=== PATIENT | female | born 1975 | race Two or more races ===

== ENCOUNTER → 2024-10-06 | Outpatient (CLI) | payer MEDICAID, SELFPAY ==
[2024-10-06] VITALS (7 sets, daily range): BP systolic 119–145; BP diastolic 72–90; PULSE 69–82; RESP 13–24; TEMP 37.1; O2SAT 95–100
[2024-10-06 12:50] LABS: HCG Qualitative,Urine Negative
--- NOTE | 2024-10-06 13:00 | XR_ITS ---
Examination: CTA abdomen, with intravenous contrast. CTA pelvis, with intravenous contrast. 2-D sagittal and coronal reconstructions. 3-D reconstructions. Date and time of exam: October 06, 2024 1420 hours INDICATIONS: Cirrhosis, portal hypertension CTDI vol (mgy) 59.1 DLP (MGycm) 3051 Technique: Multiple CTA images, 2.0 mm slice thickness, obtained, abdomen, pelvis, with the high-resolution 64 slice scanner. 60 cc Isovue-300 is administered intravenously. Sagittal and coronal 2-D reconstructions are obtained. 3-D reconstructions, angiographic images are obtained. 3-D postprocessing, including vascular maximum intensity projections. Low dose protocols were performed. One or more of the following dose reduction techniques were used; automated exposure control, adjustment of the mA and/or KV according to patient size, use of iterative reconstruction technique. Findings: Liver mildly irregular in contour Calcification involving the wall the gallbladder Splenomegaly AP dimension 16 cm No pancreatic mass Aorta normal size No bowel obstruction No hydronephrosis Minute fat-containing umbilical hernia Normal appendix No diverticulitis Uterine fundal mass 25 mm Urinary bladder intact Advanced degenerative disc disease L4-L5, L5-S1 IMPRESSION: Cirrhosis Significant splenomegaly Calcification involving the wall the gallbladder, consider hepatobiliary sonography follow-up Normal appendix No bowel obstruction Recommend repeat pelvic sonography to assess uterine fundal mass
[2024-10-06] MEDS: HYDROCORTISONE SOD SUCC INJ 100 MG VIAL IV (14:01)
[2024-10-06] MEDS: DiphenhydrAMINE 25 MG CAPSULE 50 MG PO (14:30)
--- NOTE | 2024-10-06 14:30 | PC.NURSE ---
UPON COMPLETION OF CT NOTED PATIENT TO HAVE A HIVE ABOVE HER LIP. PATIENTS CHEEKS WERE RED AND LEFT ARM AND FACE FELT ITCHY. DOCTOR YANA NOTIFIED. BENADRYL PO ORDERED AND GIVEN. PATIENTS SKIN ASSESSED NO OTHER HIVES. WILL CONTINUE TO MONITOR.
--- NOTE | 2024-10-06 15:45 | PC.NURSE ---
HIVE ON PATIENTS FACE NOW GONE AND REDNESS NO LONGER NOTED. PATIENT NO LONGER FEELS ITCHY. PATIENT HAS A RIDE HOME AND STATES SHE FEELS READY TO GO HOME.
== END | disposition home or self-care (01) ==
PROVIDERS: PCP Nurse Practitioner Primary Care; Referring Provider Internal Medicine Hepatology; Visit Provider Internal Medicine Hepatology
DX: K74.60 Unspecified cirrhosis of liver (principal); R16.1 Splenomegaly, not elsewhere classified; K82.8 Other specified diseases of gallbladder; Z32.00 Encounter for pregnancy test, result unknown
CPT/HCPCS: 74174; 81025; A4649; J1720; Q9967; A9270

== ENCOUNTER 2024-10-16 10:28 | Outpatient (RCR) | payer MEDICAID, SELFPAY ==
--- NOTE | 2024-10-18 05:48 | CTCFLWUP_ITS ---
Patient: MARIYA RANDALL : 1975 Page 4 of 4 FOLLOW UP NOTE DATE OF SERVICE: 10/16/2024 NAME: MARIYA RANDALL ACCOUNT: [id number] : 1975 AGE: 49 INTERVAL HISTORY: Patient is doing well and have no new complaints. Denies any bleeding or bruising. Patient follows with filter worker and was told that she is not a candidate for liver transplant. She has varices as well as cirrhosis but was told that her cirrhosis is stable. Patient also has splenomegaly. ONCOLOGY HISTORY: DIAGNOSIS: Thrombocytopenia, unspecified [ICD10] D69.6 HISTORY OF PRESENT ILLNESS: Mariya Randall is a 49-year-old ENG speaking female without any significant past medical history has been trying to get since 2018. She apparently had in vitro fertilization in [place]. Currently she is carrying twin babies. She is referred to hematology clinic for thrombocytopenia 06/19/2019: Platelet count 153,000, WBC 5.2, ANC 3.0, hemoglobin 11.6, MCV 91 04/03/2022: Platelet count 85,000, WBC 5.0, hemoglobin 11.7, MCV 102, creatinine 0.5, T bili 0.5, AST 37, ALT 30 LDH 179 04/09/2022: Platelet count 78,000, WBC 3.8, ANC 2.6, hemoglobin 11.1, MCV 106, creatinine 0.5, T bili 0.6, AST 45, ALT 33 04/26/2022: Platelet count 56,000 04/27/2022: Platelet count 56,000. Platelet aggregation noted in the sample. 05/04/2022: Platelet count 62,000. Ms. Randall received first dose of IVIG 85 g. (1 g/kg) 05/05/2022 platelet count 60,000. Ms. Randall received second dose of IVIG 85 g (1 g/kg) 05/06/2022: Platelet count 56,000, WBC 2.6, ANC 1.8, hemoglobin 10.4, MCV 107, creatinine 0.9, AST 53, ALT 33, T bili 0.9, alk phos 203 05/14/2022: Ms. Randall had at [facility] in [place]. She was found to have preeclampsia. She was also found to have cirrhosis of the liver, ascites as well as anasarca. 05/16/2022: CT scan of the abdomen and pelvis with contrast?spleen is reportedly unremarkable. 06/11/2022: Platelet count 89,000, WBC 2.7, ANC 1.7, hemoglobin 12.5. 07/13/2022: WBC 2.6, ANC 1.6, hemoglobin 12.6, MCV 100, platelets 89,000, creatinine 0.58 AST 28, ALT 18, alkaline phosphatase 58, T bili 0.7, hepatitis C not detected, HSV IgG type 32.9, antimitochondrial antibodies negative 07/23/2022: Abdominal ultrasound 09/21/2022: Platelets 88,000, hemoglobin 13.5, MCV 96, WBC 3.6, ANC 2.1. T. bili 0.7, AST 26, ALT 19. Hepatitis B surface antibody 743.2. Hepatitis S antigen negative, hepatitis B core antibody negative. Hepatitis A antibody positive 10/08/2022: EGD and colonoscopy at [facility] 11/04/2023: Platelet count 81,000, WBC 3.3, ANC 2.0, hemoglobin 14.9, MCV 96. 02/21/2024: Platelet count 88,000, WBC 3.9, ANC 2.8, hemoglobin 14.1, MCV 97, creatinine 0.61, AST 20, ALT 18, hepatitis panel negative. 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 Farxiga - 10 mg 1 tab Daily 2. Lantus Solostar - 100 unit/mL (3 mL) As directed 3. naproxen - 375 mg 1 tab Twice a Day Medications Last Reconciled by Roxy Sapp MA on 05/16/2024 (Reconcile on Approval: ?) ALLERGIES: ibuprofen; Iodine and Iodide Containing Products REVIEW OF SYSTEMS: A complete 14-point review of systems was performed and is negative except as noted in interval history. PHYSICAL EXAMINATION: VITAL SIGNS: PAIN: 5 - Between moderate and severe pain ECOG Performance Status: 0 - Asymptomatic and fully active GENERAL APPEARANCE: Appears well, in no apparent distress, appropriately interactive. HEENT: Normocephalic, no temporal wasting, normal conjunctiva, no scleral icterus, normal hearing, lips without lesions, neck normal range of motion. CARDIOVASCULAR: Not assessed. PULMONARY: Normal respiratory effort, no respiratory distress or use of accessory muscles, speaking in full sentences, no tachypnea. EXTREMITIES: No pedal edema or cyanosis. SKIN: Normal skin appearance. NEUROLOGIC: Alert and oriented x4. PSHYCHIATRIC: Appropriate affect, mood normal, behavior normal, intact thought and speech. LABORATORY DATA: I have personally reviewed and interpreted each of the patient?s relevant lab tests, abnormal findings are below: Date 05/05/22 ??WHITE?BLOOD?COUNT?(Thou/mm3) 2.5?L ??RED?BLOOD?COUNT?(Miln/mm3) 3.23?L ??HEMOGLOBIN?(gm/dl) 11.3?L ??HEMATOCRIT?(%) 33.8?L ??PLATELET?COUNT?(Thou/mm3) 60?L ??NEUTROPHILS?%,?AUTO?(%) 65 ??LYMPH?%,?AUTO?(%) 22 ??NEUTROPHILS,?AUTO?(Thou/mm3) 1.7?L ASSESSMENT/PLAN: Thrombocytopenia from underlying cirrhosis and splenomegaly She was seen at liver transplant department at [facility] recently and felt to be not a candidate at this time for liver transplant. Hepatitis panel negative.. Thrombocytopenia most likely secondary to portal hypertension and splenomegaly. EGD showed small esophageal varices and portal hypertensive gastropathy Cirrhosis of the liver thought to be secondary to GRAMAJO. She is being followed by hepatology department at [facility]. Hepatitis B surface antibody +743.2. Hepatitis S antigen negative. Hepatitis A antibody positive Ultrasound of the abdomen showed slight enlargement of the spleen measuring 15.4 cm Hepatitis C infection negative, hepatitis B core antibody negative, hepatitis A antibody positive. Antimitochondrial antibodies negative S/p on 05/14/2022 at [facility] in [place]. She had preeclampsia. Following the surgery she had ascites as well as anasarca. She was found to have cirrhosis of the liver.. Twin from IVF. Discussed with Ms. Randall that her platelets are 76. Patient will needed transfusion of 2 units of platelets to undergo any procedure. Also discussed with her to discuss with her hematology if she is a candidate for transplant or spleen ectomy. There is a literature where splenomegaly can worsen cirrhosis and splenectomy can help with thrombocytopenia as well as some cirrhotic liver improvement. Patient at this time is stable ORDERS: Standing order for CBC placed Ultrasound of the gallbladder to evaluate for cholelithiasis or tumor Ultrasound of the uterus to evaluate for fibroid or mass PT/INR CBC CMP and alpha-fetoprotein Need MRI liver every 6 months to evaluate for HCC from underlying cirrhosis. Patient follows with hepatology for her liver monitoring RETURN TO CLINIC: I will see her back in the clinic in 3 months. BILLING AND COMPLIANCE: I reviewed external records from providers outside my specialty as summarized above. I spent a total of 50 minutes on this patient?s care on the day of their visit excluding time spent related to any billed procedures. This time includes time spent with the patient as well as time spent documenting in the medical record, reviewing patients records and tests, obtaining history, placing orders, communicating with other healthcare professionals, counseling the patient, family or caregiver, and/or care coordination for the diagnoses above. Electronically Signed by: {Object.Sanct_ID*[email or web address]@M}, {Object.Sanct_ID*[email or web address]@U} D: {Object.Sanct_Date} T: {Object.Sanct_Time} CC: PCP: Yonas Esteban Referring: Yonas Esteban This document was completed utilizing speech recognition software. Grammatical errors, random word insertions, pronoun errors, and incomplete sentences are an occasional consequence of this system due to software limitations, ambient noise, and hardware issues. Any formal questions or concerns about the content, text or information contained within the body of this dictation should be directly addressed to the provider for clarification.
== END 2024-11-13 23:59 | disposition home or self-care (01) ==
LOC: SCTC 10:28
PROVIDERS: PCP Nurse Practitioner Family; Referring Provider Nurse Practitioner Family; Visit Provider Internal Medicine Hematology & Oncology
DX: D69.6 Thrombocytopenia, unspecified (principal); K74.60 Unspecified cirrhosis of liver; R16.1 Splenomegaly, not elsewhere classified; B15.9 Hepatitis A without hepatic coma; I85.00 Esophageal varices without bleeding; K76.6 Portal hypertension; K31.89 Other diseases of stomach and duodenum
CPT/HCPCS: 99212; G0463

== ENCOUNTER → 2024-11-03 | Outpatient (CLI) | payer MEDICAID, SELFPAY ==
--- NOTE | 2024-11-03 09:15 | XR_ITS ---
Examination: Abdomen sonogram, Limited Date and time of exam: November 03, 2024 0820 hours INDICATIONS: Right lower abdominal pain left flank pain beginning 2 weeks ago Technique: Real-time ward scale transabdominal sonographic images of the upper abdomen obtained. Findings: Gallstones, gallbladder sludge Gallbladder wall 0.43 cm no edema Common bile duct 0.6 cm no stones Pancreatic head 3.3 cm Liver 13.8 cm fatty infiltration no focal liver lesions Normal hepatopedal portal venous flow Patent IVC IMPRESSION: Cholelithiasis Borderline thickening gallbladder wall 0.43 cm, consider HIDA scan follow-up as clinically warranted Common bile duct 0.6 cm no stones Fatty liver
--- NOTE | 2024-11-03 09:45 | XR_ITS ---
Examination: Pelvic ultrasound, transabdominal, complete Technique: Transabdominal ultrasound of the pelvis performed using grayscale imaging Date and time of exam: November 03, 2024 0840 hours INDICATIONS: Right lower abdominal pain flank pain beginning 2 weeks ago FINDINGS: Uterus 9.1 cm endometrial stripe 1.2 cm Uterine area, fundal of probable fibroid degeneration 2.8 x 2.9 x 3.1 cm Right ovary 2.7 cm arterial flow Left ovary obscured by bowel gas IMPRESSION: Uterine fundal area of fibroid degeneration 2.8 x 2.9 x 3.1 cm, consider 6 month transvaginal pelvic sonography follow-up The endometrial stripe is abnormally thickened if the patient is postmenopausal, clinical correlation advised Differential for thickened endometrial stripe in a postmenopausal individual would include early malignant neoplasm of the endometrium, and follow-up MRI pelvis pre and postcontrast could be obtained as clinically warranted
== END | disposition home or self-care (01) ==
LOC: CDIM 08:20
PROVIDERS: Referring Provider Internal Medicine Hematology & Oncology; Visit Provider Internal Medicine Hematology & Oncology
DX: K80.20 Calculus of gallbladder without cholecystitis without obstruction (principal); K82.8 Other specified diseases of gallbladder; K76.0 Fatty (change of) liver, not elsewhere classified; D25.9 Leiomyoma of uterus, unspecified; N95.9 Unspecified menopausal and perimenopausal disorder; R93.89 Abnormal findings on diagnostic imaging of other specified body structures; O99.119 Other diseases of the blood and blood-forming organs and certain disorders involving the immune mechanism complicating pregnancy, unspecified trimester
CPT/HCPCS: 76705; 76856

== ENCOUNTER → 2025-01-05 | Outpatient (CLI) | payer MEDICAID, SELFPAY ==
--- NOTE | 2025-01-05 08:15 | XR_ITS ---
Examination: Screening digital mammography, bilateral Computer aided detection 3-D breast Tomosynthesis, bilateral Date and time of exam: January 05, 2025 0811 hours Compared to mammograms dated to January 20, 2019 Indication: Screening Technique: Nonmagnified MLO, CC views of the breasts to been obtained, reconstructed from 3-D Tomosynthesis images. R2 computer aided detection program utilized for evaluation of suspicious masses and/or abnormal calcifications. 3-D Tomosynthesis images obtained. Findings: Scattered areas of fibroglandular density. Benign calcifications. No interval suspicious masses Impression: BI-RADS category II: Benign Findings. Recommend 1 year follow-up mammogram.
== END | disposition home or self-care (01) ==
LOC: CDIM 07:38
PROVIDERS: Referring Provider Nurse Practitioner Primary Care; Visit Provider Nurse Practitioner Primary Care
DX: Z12.31 Encounter for screening mammogram for malignant neoplasm of breast (principal); R92.323 Mammographic fibroglandular density, bilateral breasts; R92.1 Mammographic calcification found on diagnostic imaging of breast
CPT/HCPCS: 77063; 77067

== ENCOUNTER 2025-01-16 15:21 | Outpatient (RCR) | payer MEDICAID, SELFPAY ==
--- NOTE | 2025-01-18 09:59 | CTCFLWUP_ITS ---
Patient: MARIYA RANDALL : 1975 Page 2 of 2 FOLLOW UP NOTE DATE OF SERVICE: 01/16/2025 NAME: MARIYA RANDALL ACCOUNT: [id number] : 1975 AGE: 49 INTERVAL HISTORY: Patient is doing well and have no new complaints. Denies any bleeding or bruising. Patient follows with planer offbearer and was told that she is not a candidate for liver transplant. She has varices as well as cirrhosis but was told that her cirrhosis is stable. Patient also has splenomegaly. ONCOLOGY HISTORY: DIAGNOSIS: Thrombocytopenia, unspecified [ICD10] D69.6 TREATMENT HISTORY: Care?Plan Start?Date Cycle Day Intent HISTORY OF PRESENT ILLNESS: Mariya Randall is a 49-year-old ENG speaking female without any significant past medical history has been trying to get since 2018. She apparently had in vitro fertilization in [place]. Currently she is carrying twin babies. She is referred to hematology clinic for thrombocytopenia 06/19/2019: Platelet count 153,000, WBC 5.2, ANC 3.0, hemoglobin 11.6, MCV 91 04/03/2022: Platelet count 85,000, WBC 5.0, hemoglobin 11.7, MCV 102, creatinine 0.5, T bili 0.5, AST 37, ALT 30 LDH 179 04/09/2022: Platelet count 78,000, WBC 3.8, ANC 2.6, hemoglobin 11.1, MCV 106, creatinine 0.5, T bili 0.6, AST 45, ALT 33 04/26/2022: Platelet count 56,000 04/27/2022: Platelet count 56,000. Platelet aggregation noted in the sample. 05/04/2022: Platelet count 62,000. Ms. Randall received first dose of IVIG 85 g. (1 g/kg) 05/05/2022 platelet count 60,000. Ms. Randall received second dose of IVIG 85 g (1 g/kg) 05/06/2022: Platelet count 56,000, WBC 2.6, ANC 1.8, hemoglobin 10.4, MCV 107, creatinine 0.9, AST 53, ALT 33, T bili 0.9, alk phos 203 05/14/2022: Ms. Randall had at [facility] in [place]. She was found to have preeclampsia. She was also found to have cirrhosis of the liver, ascites as well as anasarca. 05/16/2022: CT scan of the abdomen and pelvis with contrast?spleen is reportedly unremarkable. 06/11/2022: Platelet count 89,000, WBC 2.7, ANC 1.7, hemoglobin 12.5. 07/13/2022: WBC 2.6, ANC 1.6, hemoglobin 12.6, MCV 100, platelets 89,000, creatinine 0.58 AST 28, ALT 18, alkaline phosphatase 58, T bili 0.7, hepatitis C not detected, HSV IgG type 32.9, antimitochondrial antibodies negative 07/23/2022: Abdominal ultrasound 09/21/2022: Platelets 88,000, hemoglobin 13.5, MCV 96, WBC 3.6, ANC 2.1. T. bili 0.7, AST 26, ALT 19. Hepatitis B surface antibody 743.2. Hepatitis S antigen negative, hepatitis B core antibody negative. Hepatitis A antibody positive 10/08/2022: EGD and colonoscopy at [facility] 11/04/2023: Platelet count 81,000, WBC 3.3, ANC 2.0, hemoglobin 14.9, MCV 96. 02/21/2024: Platelet count 88,000, WBC 3.9, ANC 2.8, hemoglobin 14.1, MCV 97, creatinine 0.61, AST 20, ALT 18, hepatitis panel negative. 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 Farxiga - 10 mg 1 tab Daily 2. Lantus Solostar - 100 unit/mL (3 mL) As directed 3. naproxen - 375 mg 1 tab Twice a Day 4. Ozempic - 0.25 mg or 0.5 mg(2 mg/1.5 mL) Weekly Medications Last Reconciled by Roxy Sapp MA on 01/16/2025 ALLERGIES: ibuprofen; Iodine and Iodide Containing Products REVIEW OF SYSTEMS: A complete 14-point review of systems was performed and is negative except as noted in interval history. PHYSICAL EXAMINATION: VITAL SIGNS: Temperature?98, B/P?110/70, Oxygen?Saturation?97% Weight?212?lbs PAIN: 0 - No pain ECOG Performance Status: 0 - Asymptomatic and fully active GENERAL APPEARANCE: Appears well, in no apparent distress, appropriately interactive. HEENT: Normocephalic, no temporal wasting, normal conjunctiva, no scleral icterus, normal hearing, lips without lesions, neck normal range of motion. CARDIOVASCULAR: Not assessed. PULMONARY: Normal respiratory effort, no respiratory distress or use of accessory muscles, speaking in full sentences, no tachypnea. EXTREMITIES: No pedal edema or cyanosis. SKIN: Normal skin appearance. NEUROLOGIC: Alert and oriented x4. PSHYCHIATRIC: Appropriate affect, mood normal, behavior normal, intact thought and speech. LABORATORY DATA: I have personally reviewed and interpreted each of the patient?s relevant lab tests, abnormal findings are below: Date 05/04/22 05/05/22 ??WHITE?BLOOD?COUNT?(Thou/mm3) 3.7 2.5?L ??RED?BLOOD?COUNT?(Miln/mm3) 3.14?L 3.23?L ??HEMOGLOBIN?(gm/dl) 11.4?L 11.3?L ??HEMATOCRIT?(%) 32.6?L 33.8?L ??PLATELET?COUNT?(Thou/mm3) 62?L 60?L ??NEUTROPHILS?%,?AUTO?(%) 71 65 ??LYMPH?%,?AUTO?(%) 21 22 ??NEUTROPHILS,?AUTO?(Thou/mm3) 2.6 1.7?L ??GLUCOSE,RANDOM?(mg/dL) 141?H ? ??BLOOD?UREA?NITROGEN?(mg/dL) 12 ? ??CREATININE?(mg/dL) 0.70 ? ??SODIUM?(mmol/L) 137 ? ??POTASSIUM?(mmol/L) 4.4 ? ??CHLORIDE?(mmol/L) 111?H ? ??CrCl?(CandG)?(ml/min) 191.29 ? ??AST/SGOT?(Unit/L) 62?H ? ??ALT/SGPT?(Unit/L) 39 ? ??ALKALINE?PHOSPHATASE?(Unit/L) 217?H ? ??BILIRUBIN,?TOTAL?(mg/dL) 1.1 ? ??PROTEIN?TOTAL?(gm/dl) 5.3?L ? ??ALBUMIN,?SERUM?(gm/dl) 2.9?L ? ??GLOBULIN?(gm/dl) 2.4 ? ??ALBUMIN/GLOBULIN?RATIO 1.2 ? ??CALCIUM,?SERUM?(mg/dL) 8.2?L ? ??CALCIUM?SERUM?(CORRECTED)?(mg/dL) 9.1 ? ASSESSMENT/PLAN: Thrombocytopenia from underlying cirrhosis and splenomegaly She was seen at liver transplant department at [facility] recently and felt to be not a candidate at this time for liver transplant. Hepatitis panel negative.. Thrombocytopenia most likely secondary to portal hypertension and splenomegaly. EGD showed small esophageal varices and portal hypertensive gastropathy Cirrhosis of the liver thought to be secondary to GRAMAJO. She is being followed by hepatology department at [facility]. Hepatitis B surface antibody +743.2. Hepatitis S antigen negative. Hepatitis A antibody positive Ultrasound of the abdomen showed slight enlargement of the spleen measuring 15.4 cm Hepatitis C infection negative, hepatitis B core antibody negative, hepatitis A antibody positive. Antimitochondrial antibodies negative S/p on 05/14/2022 at [facility] in [place]. She had preeclampsia. Following the surgery she had ascites as well as anasarca. She was found to have cirrhosis of the liver.. Twin from IVF. Discussed with Ms. Randall that her platelets are 76. Patient will needed transfusion of 2 units of platelets to undergo any procedure. Also discussed with her to discuss with her hematology if she is a candidate for transplant or spleen ectomy. There is a literature where splenomegaly can worsen cirrhosis and splenectomy can help with thrombocytopenia as well as some cirrhotic liver improvement. Patient at this time is stable ORDERS: Order # Description [id number] Comprehensive Metabolic Panel - 12 + CBC with Auto Diff [id number] CA [id number] Follow Up 3 Months RETURN TO CLINIC: BILLING AND COMPLIANCE: I reviewed external records from providers outside my specialty as summarized above. I spent a total of 50 minutes on this patient?s care on the day of their visit excluding time spent related to any billed procedures. This time includes time spent with the patient as well as time spent documenting in the medical record, reviewing patients records and tests, obtaining history, placing orders, communicating with other healthcare professionals, counseling the patient, family or caregiver, and/or care coordination for the diagnoses above. Electronically Signed by: Serge Smith MD T: 9:57 AM CC: OCTAVIO Sky PCP: Abimbola Pereira Referring: Abimbola Pereira This document was completed utilizing speech recognition software. Grammatical errors, random word insertions, pronoun errors, and incomplete sentences are an occasional consequence of this system due to software limitations, ambient noise, and hardware issues. Any formal questions or concerns about the content, text or information contained within the body of this dictation should be directly addressed to the provider for clarification.
== END 2025-02-12 23:59 | disposition home or self-care (01) ==
LOC: SCTC 15:21
PROVIDERS: PCP Nurse Practitioner Primary Care; Referring Provider Nurse Practitioner Primary Care; Visit Provider Internal Medicine Hematology & Oncology
DX: D69.6 Thrombocytopenia, unspecified (principal); R16.1 Splenomegaly, not elsewhere classified; K74.60 Unspecified cirrhosis of liver; I85.10 Secondary esophageal varices without bleeding; K76.6 Portal hypertension; K31.89 Other diseases of stomach and duodenum; K75.81 Nonalcoholic steatohepatitis (NASH)
CPT/HCPCS: 99212; G0463

== ENCOUNTER → 2025-03-02 | Outpatient (CLI) | payer MEDICAID, SELFPAY ==
--- NOTE | 2025-03-02 15:44 | XR_ITS ---
Examination: Lumbar spine, 5 views Technique: Lumbar spine AP, lateral, coned lateral lower lumbar spine, bilateral obliques 5 views Exam date and time: March 02, 2025 1548 hours INDICATIONS: Low back pain months. FINDINGS: Adequate alignment lumbar vertebral bodies No lumbar fracture. Moderate to advanced degenerative disc disease L4-L5, L5-S1, progressed compared to 2017 study IMPRESSION: Moderate to advanced degenerative disc disease L4-L5, L5-S1
== END | disposition home or self-care (01) ==
PROVIDERS: PCP Nurse Practitioner Primary Care; Referring Provider Nurse Practitioner Primary Care; Visit Provider Nurse Practitioner Primary Care
DX: M51.360 Other intervertebral disc degeneration, lumbar region with discogenic back pain only (principal); M51.370 Other intervertebral disc degeneration, lumbosacral region with discogenic back pain only
CPT/HCPCS: 72110

== ENCOUNTER 2025-03-20 08:16 | Outpatient (AMB) | payer MEDICAID, SELFPAY ==
[2025-03-20 08:37] VITALS: BP 125/80; PULSE 82; RESP 16; TEMP 36.3; O2SAT 98; BMI 33.0
--- NOTE | 2025-03-20 08:37 | GYNCLNT_ITS ---
Vital Signs 03/20/25 08:37 Height 1.68 m Height Method Stated Weight 92.703 kg Weight Measurement Method Standing Scale BMI 33.0 BP 125/80 Blood Pressure Source Automatic Cuff Blood Pressure Location Left Upper Arm Position Sitting Respiration 16 Pulse 82 Pulse Source Monitor Temp 97.4 F Temp Source Oral Pulse Oximetry (%) 98 Oxygen Delivery Method Room Air Allergies/Home Meds Allergies & Medications Allergies ibuprofen Allergy (Severe, Verified 04/06/25 11:35) Swelling of Lip/Tongue/Throat Iodinated Contrast Media Allergy (Severe, Verified 04/06/25 11:35) Swelling of Lip/Tongue/Throat Medication Reconciliation ferrous sulfate 325 mg (65 mg iron) tablet 1 tab PO QDAY 04/03/22 [History Confirmed 04/06/25] metformin 850 mg tablet 850 mg PO TID 04/03/22 [History Confirmed 04/06/25] vits no.130-ferrous fum 27 mg iron-folic acid 800 mcg tablet ( Vitamin) 1 tab PO QDAY 04/03/22 [History Confirmed 04/06/25] progesterone micronized 200 mg capsule 200 mg HS 04/03/22 [History Confirmed 04/06/25] aspirin 81 mg capsule mg 04/23/22 [History Confirmed 04/06/25] insulin NPH isoph U-100 human 100 unit/mL subcutaneous suspension (Humulin N NPH U-100 Insulin (isophane susp)) ml subcut 04/23/22 [History Confirmed 04/06/25] insulin lispro 100 unit/mL subcutaneous solution (Humalog U-100 Insulin) 10 unit TID 04/23/22 [History Confirmed 04/06/25] labetalol 100 mg tablet 100 mg PO BID 04/23/22 [History Confirmed 04/06/25] Intake Visit Data Collection New Patient or Established: Established Patient (seen at [facility] within 3 years) Reason for Visit:: PAP SMEAR Seen by Clinical Staff ONLY (RN/MA): No Mobile Home Mechanic Required: No Do You Feel Safe at Home: Yes Authorities Contacted: N/A PCP or OBGYN visit in last 3 months: Yes Hx Now: No Are you currently on any form of Control: Yes Last menstrual period: 02/16/25 Pain Present Currently: No Pain Scale Used: Thacker-Mosquera/Numerical Pain scale:: 0 Smoking Status Smoking Status: Never smoker 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 Associate history 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 Associate History Menstrual regularity: irregular Flow: heavy (THE FIRST TWO DAYS IS HEAVY) Monthly: Yes How many days does period last: 6 Age at menarche: 10 Currently sexually active: Yes 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 1. Little interest or pleasure in doing things: not at all 2. Feeling down, depressed, or hopeless: not at all Total score: 0 PHQ-9 3. Trouble falling or staying asleep, or sleeping too much: Not at all 4. Feeling tired or having little energy: Not at all 5. Poor appetite or overeating: Not at all 6. Feeling bad about yourself - or that you are a failure or have let yourself or your family down: Not at all 7. Trouble concentrating on things, such as reading the newspaper or watching television: Not at all 8. Moving or speaking so slowly that other people could have noticed? - Or the opposite - being so fidgety or restless that you have been moving around a lot more than usual: not at all 9. Thoughts that you would be better off or of hurting yourself in some way: Not at all Total score: 0 Source: Developed by Drs. Brad Granados, Nadia Andino, Basim Calloway and colleagues, with an educational carlos from [employer]. Depression screen completed yes Social History Living Situation History Housing: House Tobacco History Smoking Status: Never smoker Alcohol History Alcohol Intake: Never Domestic Abuse History Do You Feel Safe at Home: Yes History of Present Illness LESLY Randall is a 49-year-old female referred from [facility] for a gynecological evaluation. She has a complex medical history including thrombocytopenia, hepatic varices with cirrhosis, splenomegaly, and type 2 diabetes mellitus. The patient reports a recent pelvic ultrasound performed at the oncology clinic, where a uterine cyst was identified. This finding prompted the referral for a Pap smear and further gynecological assessment. Mariya's gynecological history is significant for menarche at age 10, 1, para 0, and a history of laparoscopic ovarian cystectomy in 2018. She underwent IVF resulting in a twin , which ended in a on May 14, 2022, complicated by preeclampsia, ascites, and xerosis. 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 She was previously evaluated for a liver transplant at [facility] but was deemed not a candidate. Her xerosis is thought to be secondary to non-alcoholic steatohepatitis. She is currently managing her type 2 diabetes with insulin and Ozempic. The patient does not report any specific gynecological symptoms or concerns at this visit. She is here for routine follow-up and the recommended Pap smear based on the findings from her oncology clinic visit. 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 - Non-alcoholic steatohepatitis (GRAMAJO) - Cirrhosis with hepatic varices - Splenomegaly - Xerosis Surgical History: - on May 14, 2022, in [place], with complications of preec lampsia, ascites, and ascarcia with xerosis - Laparoscopic ovarian cystectomy in 2018 Medications: - Insulin - Ozempic Social History: - Occupation: Works at [employer] Exam General General Appearance: alert, in no apparent distress and healthy appearing Head Head exam: atraumatic Neck Neck exam: Present normal inspection and trachea midline Chest Chest inspection: Present normal inspection and symmetric chest wall rise External exam: Present normal external exam; Absent tenderness Neuro Neurological exam: Present oriented X3 Psych Psychiatric exam: Present normal affect and normal mood Assessment & Plan Diagnosis / Problem List (1) LGSIL (low grade squamous intraepithelial dysplasia): Status: Acute (2) Intramural leiomyoma of uterus: Status: Acute (3) Thrombocytopenia: Status: Acute (4) Cirrhosis of liver: Status: Acute (5) Type 2 diabetes mellitus with unspecified complications: Status: Acute Plan Uterine Fibroid Assessment: Transabdominal pelvic ultrasound on November 03, 2024, revealed a 2.8 x 2.9 x 3.1 cm fondal fibroid with degeneration. The uterus measures 9.1 cm with an endometrial stripe of 1.2 cm. The fibroid is small and benign, with degeneration likely due to the patient's low platelet count. 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 Currently monitored at [facility]. Recent platelet count reported to be in the 70s. Plan: - Continue follow-up with [facility] for thrombocytopenia management Cirrhosis with Hepatic Varices and Splenomegaly Assessment: History of cirrhosis with hepatic varices and splenomegaly. Previously evaluated for liver transplant at [facility] but deemed not a candidate. Cirrhosis thought to be secondary to non-alcoholic steatohepatitis (GRAMAJO). Plan: - Continue current management plan for cirrhosis - No specific gynecological interventions required at this time Type 2 Diabetes Mellitus Assessment: History of Type 2 Diabetes Mellitus, currently managed with insulin and Ozempic. Plan: - Continue current diabetes management - No specific gynecological interventions required at this time
== END 2025-03-20 09:08 | disposition home or self-care (01) ==
LOC: HODSOBC 08:16
PROVIDERS: PCP Nurse Practitioner Primary Care; Referring Provider Nurse Practitioner Primary Care; Supervising Provider Obstetrics & Gynecology; Visit Provider Obstetrics & Gynecology
DX: D25.1 Intramural leiomyoma of uterus (principal); K74.60 Unspecified cirrhosis of liver; D69.59 Other secondary thrombocytopenia; E11.9 Type 2 diabetes mellitus without complications; Z79.85 Long-term (current) use of injectable non-insulin antidiabetic drugs; Z79.4 Long term (current) use of insulin
CPT/HCPCS: 99214; Q0091; G0463

== ENCOUNTER 2025-04-06 11:11 | Outpatient (AMB) | payer MEDICAID, SELFPAY ==
--- NOTE | 2025-04-06 11:35 | AMB.GYNCLNOT ---
Allergies/Home Meds Allergies & Medications Allergies ibuprofen Allergy (Severe, Verified 04/06/25 11:35) Swelling of Lip/Tongue/Throat Iodinated Contrast Media Allergy (Severe, Verified 04/06/25 11:35) Swelling of Lip/Tongue/Throat Medication Reconciliation ferrous sulfate 325 mg (65 mg iron) tablet 1 tab PO QDAY 04/03/22 [History Confirmed 04/06/25] metformin 850 mg tablet 850 mg PO TID 04/03/22 [History Confirmed 04/06/25] vits no.130-ferrous fum 27 mg iron-folic acid 800 mcg tablet ( Vitamin) 1 tab PO QDAY 04/03/22 [History Confirmed 04/06/25] progesterone micronized 200 mg capsule 200 mg HS 04/03/22 [History Confirmed 04/06/25] aspirin 81 mg capsule mg 04/23/22 [History Confirmed 04/06/25] insulin NPH isoph U-100 human 100 unit/mL subcutaneous suspension (Humulin N NPH U-100 Insulin (isophane susp)) ml subcut 04/23/22 [History Confirmed 04/06/25] insulin lispro 100 unit/mL subcutaneous solution (Humalog U-100 Insulin) 10 unit TID 04/23/22 [History Confirmed 04/06/25] labetalol 100 mg tablet 100 mg PO BID 04/23/22 [History Confirmed 04/06/25] Intake Visit Data Collection New Patient or Established: Established Patient (seen at [facility] within 3 years) Reason for Visit:: TELEMED FOR PAP RESULTS Consent obtained for Telemed Visit: Yes Seen by Clinical Staff ONLY (RN/MA): No Procurement Services Manager Required: No Do You Feel Safe at Home: Yes Authorities Contacted: N/A PCP or OBGYN visit in last 3 months: Yes Date of Last PCP or OBGYN visit: 03/20/25 Hx Now: No Pain Present Currently: No Pain Scale Used: Thacker-Mosquera/Numerical Pain scale:: 0 Smoking Status Smoking Status: Never smoker For Telemed visit only Telemed Video/Phone Visit: Yes Verbal consent obtained for Telemed visit?: Yes Verbal Consent witness name: BELGICA JUNIOR/ STANLEY JUNIOR 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 Centrifugal Machine Tender History Menstrual regularity: regular Flow: normal Monthly: Yes Menopausal: No 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 1. Little interest or pleasure in doing things: not at all 2. Feeling down, depressed, or hopeless: not at all Total score: 0 PHQ-9 3. Trouble falling or staying asleep, or sleeping too much: Not at all 4. Feeling tired or having little energy: Not at all 5. Poor appetite or overeating: Not at all 6. Feeling bad about yourself - or that you are a failure or have let yourself or your family down: Not at all 7. Trouble concentrating on things, such as reading the newspaper or watching television: Not at all 8. Moving or speaking so slowly that other people could have noticed? - Or the opposite - being so fidgety or restless that you have been moving around a lot more than usual: not at all 9. Thoughts that you would be better off or of hurting yourself in some way: Not at all Total score: 0 If you checked off any problems, how difficult have these problems made it for you to do your work, take care of things at home, or get along with other people?: not difficult at all Source: Developed by Drs. Brad Granados, Nadia Andino, Basim Calloway and colleagues, with an educational carlos from [employer]. Depression screen completed yes Social History Living Situation History Housing: House Tobacco History Smoking Status: Never smoker Second Hand Smoke Exposure: No Alcohol History Alcohol Intake: Never Domestic Abuse History Do You Feel Safe at Home: Yes History of Present Illness HPI Narrative Mariya Randall presents for a televisit to discuss her recent pap smear results. The patient's pap smear showed a low-grade squamous intraepithelial lesion (LSIL) with negative HPV testing. During the televisit, Mariya was informed about the nature of her pap smear results. She was reassured that the low-grade abnormality is not concerning and represents the slightest of abnormalities. The patient expressed some concern about the frequency of follow-up testing, initially expecting to have another pap smear in a year. After discussion about the guidelines for follow-up, Mariya agreed to return for a repeat pap smear in one year, despite the recommendation for a 3-year interval, due to her personal preference and concerns. ROS: Negative except as stated above, limited to STRETCHER LEVELER OPERATOR and pertinent complaints. Office Procedures OB Clinic LOC & Office Proc's Nursing/Assessment Patient Status: Established Patient OB Clinic Nursing Assessment: Medication Reconciliation and Update PMH in EMR OB Clinic Coordination of Care: Education Complex Pt/Fam, Consent,records obtained, informed consent, Lab and Imaging orders, Results/Orders obtained and Staff clarify orders Established Patient Charge Established Patient Point Assignment: 70 Telehealth If patient is seen using Teleconference methods, complete New/Est section, but DO NOT daniel points only daniel the correct Telemed visit type Telemed Phone/Video with patient at home & Dr,PA,TRACER LATHE SET UP OPERATOR: Yes Assessment & Plan Diagnosis / Problem List (1) LGSIL (low grade squamous intraepithelial dysplasia): Status: Acute Plan Abnormal Pap Smear: Low-grade Squamous Intraepithelial Lesion (LSIL): - Low-grade squamous intraepithelial lesion with negative HPV test. - Mild abnormality considered low-risk for progression to cervical cancer. - HPV negative result is reassuring. Plan: - Repeat pap smear in 1 year per patient preference instead of guideline-recommended 3 years. - Educated patient on meaning of LSIL and negative HPV results. - Informed patient that annual pap smears are not typically necessary but accommodated preference for more frequent screening. Bacterial Panel Results: - Negative bacterial panel indicating no evidence of bacterial infection. Plan: - No further action required at this time.
== END 2025-04-06 11:34 | disposition home or self-care (01) ==
LOC: HODSOBC 11:11
PROVIDERS: Supervising Provider Obstetrics & Gynecology; Visit Provider Obstetrics & Gynecology
DX: R87.612 Low grade squamous intraepithelial lesion on cytologic smear of cervix (LGSIL) (principal); Z88.6 Allergy status to analgesic agent; Z91.041 Radiographic dye allergy status
CPT/HCPCS: 99212; G0463

== ENCOUNTER 2025-05-28 15:41 | Outpatient (RCR) | payer MEDICAID, SELFPAY ==
--- NOTE | 2025-06-11 00:32 | CTCFLWUP_ITS ---
Patient: MARIYA RANDALL : 1975 Page 3 of 5 FOLLOW UP NOTE DATE OF SERVICE: 05/28/2025 NAME: MARIYA RANDALL ACCOUNT: [id number] : 1975 AGE: 49 INTERVAL HISTORY: Patient here for routine follow-up. Denies any new complaints DIAGNOSIS: Thrombocytopenia, unspecified [ICD10] D69.6 HISTORY OF PRESENT ILLNESS: Mariya Randall is a 49-year-old ENG speaking female without any significant past medical history has been trying to get since 2018. She apparently had in vitro fertilization in [place]. Currently she is carrying twin babies. She is referred to hematology clinic for thrombocytopenia 06/19/2019: Platelet count 153,000, WBC 5.2, ANC 3.0, hemoglobin 11.6, MCV 91 04/03/2022: Platelet count 85,000, WBC 5.0, hemoglobin 11.7, MCV 102, creatinine 0.5, T bili 0.5, AST 37, ALT 30 LDH 179 04/09/2022: Platelet count 78,000, WBC 3.8, ANC 2.6, hemoglobin 11.1, MCV 106, creatinine 0.5, T bili 0.6, AST 45, ALT 33 04/26/2022: Platelet count 56,000 04/27/2022: Platelet count 56,000. Platelet aggregation noted in the sample. 05/04/2022: Platelet count 62,000. Ms. Randall received first dose of IVIG 85 g. (1 g/kg) 05/05/2022 platelet count 60,000. Ms. Randall received second dose of IVIG 85 g (1 g/kg) 05/06/2022: Platelet count 56,000, WBC 2.6, ANC 1.8, hemoglobin 10.4, MCV 107, creatinine 0.9, AST 53, ALT 33, T bili 0.9, alk phos 203 05/14/2022: Ms. Randall had at [facility] in [place]. She was found to have preeclampsia. She was also found to have cirrhosis of the liver, ascites as well as anasarca. 05/16/2022: CT scan of the abdomen and pelvis with contrast?spleen is reportedly unremarkable. 06/11/2022: Platelet count 89,000, WBC 2.7, ANC 1.7, hemoglobin 12.5. 07/13/2022: WBC 2.6, ANC 1.6, hemoglobin 12.6, MCV 100, platelets 89,000, creatinine 0.58 AST 28, ALT 18, alkaline phosphatase 58, T bili 0.7, hepatitis C not detected, HSV IgG type 32.9, antimitochondrial antibodies negative 07/23/2022: Abdominal ultrasound 09/21/2022: Platelets 88,000, hemoglobin 13.5, MCV 96, WBC 3.6, ANC 2.1. T. bili 0.7, AST 26, ALT 19. Hepatitis B surface antibody 743.2. Hepatitis S antigen negative, hepatitis B core antibody negative. Hepatitis A antibody positive 10/08/2022: EGD and colonoscopy at [facility] 11/04/2023: Platelet count 81,000, WBC 3.3, ANC 2.0, hemoglobin 14.9, MCV 96. 02/21/2024: Platelet count 88,000, WBC 3.9, ANC 2.8, hemoglobin 14.1, MCV 97, creatinine 0.61, AST 20, ALT 18, hepatitis panel negative. 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 Farxiga - 10 mg 1 tab Daily 2. Lantus Solostar - 100 unit/mL (3 mL) As directed 3. naproxen - 375 mg 1 tab Twice a Day 4. Ozempic - 0.25 mg or 0.5 mg(2 mg/1.5 mL) Weekly Medications Last Reconciled by Yumiko Pereira MD on 05/28/2025 ALLERGIES: ibuprofen; Iodine and Iodide Containing Products REVIEW OF SYSTEMS: A complete 14-point review of systems was performed and is negative except as noted in interval history. PHYSICAL EXAMINATION: VITAL SIGNS: Temperature?98.8, B/P?127/86, Oxygen?Saturation?99% Weight?212?lbs PAIN: 0 - No pain GENERAL APPEARANCE: Appears well, in no apparent distress, appropriately interactive. HEENT: Normocephalic, no temporal wasting, normal conjunctiva, no scleral icterus, normal hearing, lips without lesions, neck normal range of motion. CARDIOVASCULAR: Not assessed. PULMONARY: Normal respiratory effort, no respiratory distress or use of accessory muscles, speaking in full sentences, no tachypnea. EXTREMITIES: No pedal edema or cyanosis. SKIN: Normal skin appearance. NEUROLOGIC: Alert and oriented x4. PSHYCHIATRIC: Appropriate affect, mood normal, behavior normal, intact thought and speech. LABORATORY DATA: I have personally reviewed and interpreted each of the patient?s relevant lab tests, abnormal findings are below: Date 05/04/22 05/05/22 ??WHITE?BLOOD?COUNT?(Thou/mm3) 3.7 2.5?L ??RED?BLOOD?COUNT?(Miln/mm3) 3.14?L 3.23?L ??HEMOGLOBIN?(gm/dl) 11.4?L 11.3?L ??HEMATOCRIT?(%) 32.6?L 33.8?L ??PLATELET?COUNT?(Thou/mm3) 62?L 60?L ??NEUTROPHILS?%,?AUTO?(%) 71 65 ??LYMPH?%,?AUTO?(%) 21 22 ??NEUTROPHILS,?AUTO?(Thou/mm3) 2.6 1.7?L ??GLUCOSE,RANDOM?(mg/dL) 141?H ? ??BLOOD?UREA?NITROGEN?(mg/dL) 12 ? ??CREATININE?(mg/dL) 0.70 ? ??SODIUM?(mmol/L) 137 ? ??POTASSIUM?(mmol/L) 4.4 ? ??CHLORIDE?(mmol/L) 111?H ? ??CrCl?(CandG)?(ml/min) 191.29 ? ??AST/SGOT?(Unit/L) 62?H ? ??ALT/SGPT?(Unit/L) 39 ? ??ALKALINE?PHOSPHATASE?(Unit/L) 217?H ? ??BILIRUBIN,?TOTAL?(mg/dL) 1.1 ? ??PROTEIN?TOTAL?(gm/dl) 5.3?L ? ??ALBUMIN,?SERUM?(gm/dl) 2.9?L ? ??GLOBULIN?(gm/dl) 2.4 ? ??ALBUMIN/GLOBULIN?RATIO 1.2 ? ??CALCIUM,?SERUM?(mg/dL) 8.2?L ? ??CALCIUM?SERUM?(CORRECTED)?(mg/dL) 9.1 ? ASSESSMENT/PLAN: Thrombocytopenia from underlying cirrhosis and splenomegaly She was seen at liver transplant department at [facility] recently and felt to be not a candidate at this time for liver transplant. Hepatitis panel negative.. Thrombocytopenia most likely secondary to portal hypertension and splenomegaly. EGD showed small esophageal varices and portal hypertensive gastropathy Cirrhosis of the liver thought to be secondary to GRAMAJO. She is being followed by hepatology department at [facility]. Hepatitis B surface antibody +743.2. Hepatitis S antigen negative. Hepatitis A antibody positive Ultrasound of the abdomen showed slight enlargement of the spleen measuring 15.4 cm Hepatitis C infection negative, hepatitis B core antibody negative, hepatitis A antibody positive. Antimitochondrial antibodies negative S/p on 05/14/2022 at [facility] in [place]. She had preeclampsia. Following the surgery she had ascites as well as anasarca. She was found to have cirrhosis of the liver.. Twin from IVF. Discussed with Ms. Randall that her platelets are 76. Patient will needed transfusion of 2 units of platelets to undergo any procedure. Also discussed with her to discuss with her hematology if she is a candidate for transplant or spleen ectomy. There is a literature where splenomegaly can worsen cirrhosis and splenectomy can help with thrombocytopenia as well as some cirrhotic liver improvement. Patient at this time is stable Advised to follow-up with hepatology ORDERS: Order # Description [id number] Comprehensive Metabolic Panel - 12 + CBC with Auto Diff [id number] RETURN TO CLINIC: I reviewed the diagnosis, prognosis, and recommended treatment/procedure options with the patient (and/or their legal surgical device sales representative), including the potential benefits, risks, side effects and alternative therapies. We also discussed the option of no treatment and the possibility of clinical trial participation, if applicable. All questions were addressed, and they demonstrated understanding. They provided informed consent to proceed with the proposed plan of care. BILLING AND COMPLIANCE: I reviewed external records from providers outside my specialty as summarized above. I spent a total of 50 minutes on this patient?s care on the day of their visit excluding time spent related to any billed procedures. This time includes time spent with the patient as well as time spent documenting in the medical record, reviewing patients records and tests, obtaining history, placing orders, communicating with other healthcare professionals, counseling the patient, family or caregiver, and/or care coordination for the diagnoses above. Electronically Signed by: Serge Smith MD T: 12:30 AM CC: OCTAVIO Sky PCP: Abimbola Pereira Referring: Abimbola Pereira This document was completed utilizing speech recognition software. Grammatical errors, random word insertions, pronoun errors, and incomplete sentences are an occasional consequence of this system due to software limitations, ambient noise, and hardware issues. Any formal questions or concerns about the content, text or information contained within the body of this dictation should be directly addressed to the provider for clarification.
== END 2025-06-15 23:59 | disposition home or self-care (01) ==
LOC: SCTC 15:41
PROVIDERS: PCP Nurse Practitioner Primary Care; Referring Provider Nurse Practitioner Primary Care; Visit Provider Internal Medicine Hematology & Oncology
DX: D69.6 Thrombocytopenia, unspecified (principal); K74.60 Unspecified cirrhosis of liver; R16.1 Splenomegaly, not elsewhere classified; I85.00 Esophageal varices without bleeding; K76.6 Portal hypertension; K31.89 Other diseases of stomach and duodenum
CPT/HCPCS: 99212; G0463